=== PATIENT | male | born 1985 | race Caucasian/White ===

== ENCOUNTER 2018-05-07 09:53 | Day surgery (SDC) | payer BC ==
[~2018-05-07 09:53] MED LIST: BSS with VANC/TOB/EPI for EYE CASES IR; MIDAZOLAM INJ 2 MG/2 ML VIAL (J2250) As Ordered; fentaNYL 100 MCG/2 ML INJECTION (J3010) As Ordered
[2018-05-07] MEDS: LIDOCAINE 3.5 % 1ML OPHTH TOPICAL GEL OU (10:30)
[2018-05-07] MEDS ORDERED: POVIDONE-IODINE 5% OPHTH PREP SOL 30ML As Ordered (10:39)
[2018-05-07] MEDS ORDERED: ERYTHROMYCIN OPHTH OINT As Ordered (10:39)
[2018-05-07] MEDS ORDERED: LIDOCAINE 2% W/EPIN INJ 20ML **PRES FREE As Ordered (10:39)
== END 2018-05-07 12:20 | disposition home or self-care (01) ==
LOC: M SDC 09:53
DX: D23.111 Other benign neoplasm of skin of right upper eyelid, including canthus (principal)
CPT/HCPCS: 67840

== ENCOUNTER → 2024-04-30 | Outpatient (CLI) | payer BC | LOC: M RAD 08:38 | PROVIDERS: ATTEND Surgery | DX: K40.20 Bilateral inguinal hernia, without obstruction or gangrene, not specified as recurrent (principal) ==

== ENCOUNTER 2025-02-06 09:05 | Day surgery (SDC) | payer BC ==
[~2025-02-06] VITALS: Ht 185.4 cm; Wt 91.4 kg
[~2025-02-06 09:05] MED LIST changes: -BSS with VANC/TOB/EPI for EYE CASES IR; -MIDAZOLAM INJ 2 MG/2 ML VIAL (J2250) As Ordered; +VITA100093 PO; -fentaNYL 100 MCG/2 ML INJECTION (J3010) As Ordered
[2025-02-06] MEDS ORDERED: LR 1,000 ML IV SCH (09:25)
[2025-02-06] MEDS ORDERED: KETOROLAC 30 MG/ML 1 ML VIAL As Ordered ONE (10:03)
[2025-02-06] MEDS ORDERED: ROCURONIUM BROMIDE 50MG/5ML VIAL As Ordered ONE (10:03)
[2025-02-06] MEDS ORDERED: dexAMETHasone 4 MG/ML 1 ML VIAL As Ordered ONE (10:03)
[2025-02-06] MEDS ORDERED: ACETAMINOPHEN 1000MG/100ML IV BAG As Ordered ONE (10:03)
[2025-02-06] MEDS ORDERED: LIDOCAINE 2% 100 MG/5 ML SDV (FOR ANES.) As Ordered ONE (10:03)
[2025-02-06] MEDS ORDERED: ONDANSETRON 4MG 2ML VIAL As Ordered ONE (10:03)
[2025-02-06] MEDS ORDERED: MIDAZOLAM INJ 2 MG/2 ML VIAL As Ordered ONE (10:04)
[2025-02-06] MEDS: ceFAZolin SOD 2 GM IV ONCE IV ONE (10:16)
[2025-02-06] MEDS ORDERED: SUGAMMADEX SODIUM 200 MG/2 ML VIAL As Ordered ONE (10:49)
[2025-02-06] MEDS ORDERED: ONDANSETRON 4MG 2ML VIAL IV PRN (11:35)
[2025-02-06 12:15] VITALS: BP 130/89; TEMP 97; O2SAT 97
== END 2025-02-06 12:42 | disposition home or self-care (01) ==
LOC: M SDC 09:05
PROVIDERS: ATTEND Surgery
DX: K40.20 Bilateral inguinal hernia, without obstruction or gangrene, not specified as recurrent (principal)